=== PATIENT | female | born 2000 | race Caucasian/White ===

== ENCOUNTER 2018-05-31 19:45 | Emergency (ER) | payer OTHER ==
[~2018-05-31] VITALS: Wt 76.9 kg
[2018-05-31 19:50] VITALS: BP 141/69; PULSE 74; RESP 19
[2018-05-31] MEDS ORDERED: ONDANSETRON (ODT) 4 MG TAB ODT STA (20:46)
--- NOTE | 2018-05-31 20:47 | ERD ---
ER Documentation Chief Complaint Chief Complaint bib self, cc: swelling and redness around face x 2 days, stopped doxy 3 wks HPI This is a 17-year-old female presents here in the emergency department with complaints of rashes and hives that is on and off to her face for about 2 days. Stated that she was taking doxycycline for about 3 weeks and to stop it. Stated that she is taking doxycycline for severe acne. LMP: Stated that it was 3 weeks ago. A0. Denies headache, head injury, loss of consciousness, dizziness, neck pain, neck stiffness, throat pain, difficulty swallowing, difficulty breathing lying flat, shoulder pain, chest pain, back pain, abdominal pain, nausea, vomiting, con stipation, diarrhea, urinary symptoms, or possibility being , loss of bowel and bladder control, trauma, injury, falls, difficulty walking due to pain, numbness or tingling sensation, calf pain, recent travel, recent major surgery in the last 3 weeks, calf pain, recent long travel, recent exposure to any illness, recent antibiotic use in the last 3 months, fever, chills, seizures. Past medical history: Severe acne. Surgical history: Denies. Social: Denies smoking, use of alcoholic beverages, use of illegal drugs. ROS All systems reviewed and are negative except as per history of present illness. Medications Home Meds Active Scripts Epinephrine (Epipen 2-Greg) 0.3 Mg/0.3 Ml Pen.injctr, 1 EA INJ ONCE PRN for ALLERGIC REACTION, #1 EA Prov:ZULMA BALDERRAMA 05/31/18 Ondansetron Hcl* (Zofran*) 4 Mg Tablet, 4 MG PO Q8H PRN for NAUSEA AND/OR VOMITING, #30 TAB Prov:ZULMA BALDERRAMA 05/31/18 Prednisone* (Prednisone*) 20 Mg Tab, 40 MG PO DAILY for 4 Days, TAB Prov:ZULMA BALDERRAMA 05/31/18 Loratadine (Loratadine) 10 Mg Capsule, 10 MG PO DAILY, #30 CAP Prov:PASILAZULMA COOMBS 05/31/18 Diphenhydramine Hcl* (Benadryl*) 25 Mg Cap, 25 MG PO Q6 PRN for ITCHING/RASH, #30 TAB Prov:ZULMA BALDERRAMA 05/31/18 Famotidine* (Pepcid*) 20 Mg Tablet, 40 MG PO DAILY for 30 Days, TAB Prov:ZULMA BALDERRAMA 05/31/18 Allergies Allergies: Coded Allergies: No Known Allergy (Unverified , 05/31/18) Physical Exam Vitals Vital Signs Date Temp Pulse Resp B/P (MAP) Pulse Ox O2 O2 Flow FiO2 Time Delivery Rate 05/31/18 98.3 74 19 141/69 100 19:50 (93) Physical Exam Const: No acute distress Head: Atraumatic Eyes: Normal Conjunctiva. No conjunctival injection. There is no visual field loss. ENT: Normal External Ears, Nose and Mouth. Throat/lips: No lip swelling. No tongue swelling. No drooling. Able to control tongue movement. Uvula is midline and nondisplaced. Tonsils are +1 bilaterally without redness without exudates. Tolerating secretions. Patent airway. Speaks full and clear sentences. No tripoding. No facial swelling. No signs of angioedema. Neck: Full range of motion. No meningismus. No nuchal rigidity. No signs of meningeal irritation. Resp: Clear to auscultation bilaterally Cardio: Regular rate and rhythm, no murmurs Abd: Soft, non tender, non distended. Normal bowel sounds Skin: No petechiae or rashes. Examined with female window dresser, cath RN. Hives noted to face, neck, back, abdomen. Back: No midline or flank tenderness Ext: No cyanosis, or edema Neur: Awake and alert. No neurological deficits. Psych: Normal Mood and Affect Results 24 hrs Current Medications Medications Dose Sig/Ilene Start Time Status Last (Trade) Ordered Route PRN Stop Time Admin Dose Reason Admin Ondansetron 4 mg ONCE STAT 05/31/18 DC 05/31/18 HCl (Zofran ODT 20:46 21:01 Odt) 05/31/18 20:48 25 mg ONCE ONCE 05/31/18 DC 05/31/18 Diphenhydrami PO 21:00 21:01 ne HCl 05/31/18 (Benadryl) 21:01 Famotidine 40 mg ONCE ONCE 05/31/18 DC 05/31/18 (Pepcid) PO 21:00 21:01 05/31/18 21:01 10 mg ONCE ONCE 05/31/18 DC 05/31/18 Dexamethasone IM 21:00 21:02 (Decadron) 05/31/18 21:01 Procedures/MDM Diagnostic tests: Clinical exam. Treatment: Dexamethasone IM. Benadryl p.o. Pepcid p.o. Zofran ODT. Re-evaluation: Hives and rashes has decreased tremendously. No episode of emesis here in the emergency department. Denies throat pain, throat tightness, throat itchiness, chest pain, chest itchiness, generalized itchiness. Throat/lips: No lip swelling. No tongue swelling. No drooling. Able to control tongue movement. Speech full and clear sentences. Tolerating secretions. Patent airway. Differential diagnosis I have low suspicion for airway obstruction, angioedema, anaphylactic shock, anaphylaxis, Sarah-Isaak syndrome, shingles, scabies. Final diagnosis: Hives. Allergic reaction. Prescription: Prednisone. Pepcid. Zofran. Claritin daily. EpiPen. Follow-up with PCP in the next 24-48 hours. PCP to do an allergy test. PCP to refer patient to office support specialist. Come back here in the emergency department for any new symptoms or any worsening symptoms. All questions and concerns were answered. Patient and family members verbalized understanding and agreed with plan of care. Hemodynamically stable on discharge. Departure Diagnosis: Primary Impression: Allergic reaction Additional Impression: Hives Condition: Stable Additional Instructions: Follow-up with PCP in the next 24-48 hours. PCP to do an allergy test. PCP to refer patient to office support specialist. Come back here in the emergency department for any new symptoms or any worsening symptoms. ZULMA BALDERRAMA May 31, 2018 20:47
[2018-05-31] MEDS ORDERED: DIPHENHYDRAMINE 25 MG CAP PO ONE (21:00)
[2018-05-31] MEDS ORDERED: DEXAMETHASONE 10 MG/ML 1 ML INJ IM ONE (21:00)
[2018-05-31] MEDS ORDERED: FAMOTIDINE 20 MG TAB PO ONE (21:00)
[2018-05-31] MEDS ORDERED: FAMO-96 PO (21:07)
[2018-05-31] MEDS ORDERED: BEN25 PO (21:07)
[2018-05-31] MEDS ORDERED: LORA10CA9 PO (21:08)
[2018-05-31] MEDS ORDERED: PRED20TA PO (21:08)
[2018-05-31] MEDS ORDERED: ONDA4TAB8 PO (21:10)
[2018-05-31] MEDS ORDERED: EPIN0.3P4 INJ (21:12)
== END 2018-05-31 21:48 | disposition home or self-care (01) ==
LOC: FTE 19:45
DX: L50.9 Urticaria, unspecified (principal); T36.4X5A Adverse effect of tetracyclines, initial encounter
CPT/HCPCS: 96372; 99284; J1100